=== PATIENT | male | born 1985 | race Caucasian/White ===

== ENCOUNTER 2016-08-14 13:50 | Emergency (ER) | payer SELFPAY ==
[2016-08-14 14:19] VITALS: O2SAT 96
[2016-08-14 14:22] LABS: % IMMATURE GRANULYOCYTES 0.5 % (0.0-1.1); ABSOLUTE IMMATURE GRANULOCYTES 0.04 10^3/uL (0.00-0.10); ADD DIFF? NO; ADD MORPH? NO; ADD SCAN? NO; ATYPICAL LYMPHOCYTE FLAG 10 (0-99); FRAGMENT RBC FLAG 0 (0-99); HEMATOCRIT 41.1 % (40.0-51.0); HEMOGLOBIN 14.2 g/dL (13.7-17.5); LEFT SHIFT FLG 0 (0-99); LIPEMIA HEMOLYSIS FLAG 90 (0-99); MEAN CELL HEMOGLOBIN 32.3 pg (27.9-34.1); MEAN CELL HEMOGLOBIN CONCENTR. 34.5 g/dL (32.4-36.7); MEAN CELL VOLUME 93.4 fL (81.5-99.8); MEAN PLATELET VOLUME 9.4 fL (8.7-11.7); PLATELET CLUMPS FLAG 10 (0-99); PLATELET COUNT 312 10^3/uL (150-400); RED CELL DISTRIBUTION WIDTH 13.2 % (11.5-15.2)
[2016-08-14 14:40] LABS: ANION GAP 12 mEq/L (8-16); CALCIUM 9.7 mg/dL (8.5-10.4); CARBON DIOXIDE 23 mEq/l (22-31); CHLORIDE 106 mEq/L (97-110); CREATININE 0.8 mg/dL (0.7-1.3); ETHANOL SERUM < 10 mg/dL (0-10); GLOMERULAR FILTRATION RATE > 60; GLUCOSE 147 mg/dL (70-100); POTASSIUM 4.3 mEq/L (3.5-5.2); SALICYLATE < 1.0 mg/dL (2.0-20.0); SODIUM 141 mEq/L (134-144)
--- NOTE | 2016-08-14 14:41 | EDPHY ---
H & P Stated Complaint: Penis pain/ SI - Personal History Current Tetanus/Diphtheria Vaccine: Yes Current Tetanus Diphtheria and Acellular Pertussis (TDAP): Yes - Medical/Surgical History Hx Asthma: No Hx Chronic Respiratory Disease: No Hx Diabetes: No Hx Cardiac Disease: No Hx Renal Disease: No Hx Cirrhosis: No Hx Alcoholism: No Hx HIV/AIDS: No Hx Splenectomy or Spleen Trauma: No Other PMH: bipolar, schizoaffective, deppression, PTSD - Social History Smoking Status: Current every day smoker Time Seen by Provider: 08/14/16 13:55 HPI/ROS: CHIEF COMPLAINT: Suicidal ideation and penile pain HISTORY OF PRESENT ILLNESS: 31-year-old male history of bipolar disorder, PTSD , schizoaffective disorder, prior history of priapism, history of chronic penis pain arrives via ambulance for primary complaint of suicidal ideation with plan to jump off a bridge. Placed on M1 by police. He also mentioned to EMS that he had been experiencing penile ecchymotic discoloration and pain after self-described "rough sex" the day preceding his symptoms. Urinary habits have been normal. He is also complaining of testicular pain which started this morning. REVIEW OF SYSTEMS: A ten point review of systems was performed and is negative with the exception of the items mentioned in the HPI PAST MEDICAL & SURGICAL HISTORY: Bipolar disorder. PTSD. Schizoaffective disorder. Priapism. SOCIAL HISTORY: positive marijuana use PHYSICAL EXAM (Prior to examination, patient consented to physical exam, hands were washed and my usual and customary physical exam procedures followed) 1) GENERAL: Well-developed, well-nourished, alert and oriented. Appears to be in no acute distress. 2) HEAD: Normocephalic, atraumatic 3) HEENT: Pupils equal, round, reactive to light bilaterally. Sclera anicteric. 4) NECK: Full range of motion, no meningeal signs. 5) LUNGS: Clear auscultation bilaterally, no wheezes 6) HEART: Regular rate and rhythm, no murmur, no heave, no gallop. 7) ABDOMEN: No guarding, no rebound, no focal tenderness 8) MUSCULOSKELETAL: Moving all extremities, no focal areas of tenderness, no obvious trauma. No peripheral edema or discoloration. 9) BACK: No CVA tenderness, no midline vertebral tenderness, no fluctuance, no step-off, no obvious trauma, no visual or palpable abnormality. 10) SKIN: No rash, no petechiae. 11) Psychiatric: Patient is oriented X 3, there is no agitation. 12) : Uncircumcised, foreskin easily retracts. No urethral discharge. The shaft of the penis is ecchymotic primarily on volar aspect. The penis is nontender. Bilateral testicles are tender with cremasteric reflex present equal bilaterally no high-riding, no asymmetry, no edema. Perineal examination unremarkable with no hematoma no tenderness. DIFFERENTIAL DIAGNOSIS: In no particular include but limited to suicidal ideation, homicidal ideation, testicular torsion, fractured penis (Shanda Hanna) Constitutional: Initial Vital Signs Temperature (C) 36.9 C 08/14/16 14:08 Heart Rate 105 H 08/14/16 14:08 Respiratory Rate 14 08/14/16 14:08 Blood Pressure 116/84 H 08/14/16 14:08 O2 Sat (%) 96 08/14/16 14:08 O2 Delivery Mode Room Air Allergies/Adverse Reactions: chlorpromazine [From Thorazine] Allergy (Verified 08/14/16 14:07) iodine Allergy (Verified 08/14/16 14:07) lamotrigine [From Lamictal] Allergy (Verified 08/14/16 14:07) shellfish derived Allergy (Verified 08/14/16 14:07) Medical Decision Making - Diagnostics Imaging: Imaging Impressions Testicular Ultrasound 08/14/16 13:59 Impression: Asymmetric decrease in the size of the left testicle with a linear hypoechoic band, most likely related to sequela of old trauma. Recommend follow- up ultrasound in 3-[address] Conner Albright reviewed the study and agrees with the findings and recommendations. Findings discussed with Anthony Hanna PA-C on 08/14/2016 at 1450 hours. Images reviewed by myself (Shanda Hanna) ED Course/Re-evaluation: 4:20 p.m.: Re-evaluation. He is talking on the phone. Calm, cooperative. Genitalia re-examined by myself and also exam by Dr. Sarina Leo. Doubt testicular fracture, testicular torsion, penile fracture, priapism. 5:50 p.m. Patient evaluated by mental health underwriter. Informed patient that he has a bus ticket to go back to [place] at 7:30 p.m. this evening. Mental health underwriter does not think the patient meets criteria for mental health hold and the hold has been vacated by psychiatrist Dr. Madeleine Chandler . ( Shanda Hanna) Other Provider: I have evaluated and participated in the management of this patient. My co- signature indicates that I have reviewed this chart and that I agree with the findings and the plan of care as documented. I specifically evaluated his genitalia due to the penile edema. My personal history and physical findings include: The patient is alert and cooperative. Genitalia exam reveals a slightly edematous improved penile shaft. He is not circumcised. Foreskin can be easily retracted. No penile lesions. Testes are without swelling or tenderness. Abdomen is soft and nontender. (Sarina Leo) - Data Points Laboratory Results: Laboratory Results 08/14/16 14:16 08/14/16 14:16 08/14/16 08/14/16 08/14/16 14:34 14:34 14:16 WBC RBC Hgb Hct MCV MCH MCHC RDW Plt Count MPV Neut % (Auto) Lymph % (Auto) [place] % (Auto) Eos % (Auto) Baso % (Auto) Nucleat RBC Rel Count Absolute Neuts (auto) Absolute Lymphs (auto) Absolute Monos (auto) Absolute Eos (auto) Absolute Basos (auto) Absolute Nucleated RBC Immature Gran % Immature Gran # Sodium 141 mEq/L mEq/L (134-144) Potassium 4.3 mEq/L mEq/L (3.5-5.2) Chloride 106 mEq/L mEq/L (97-110) Carbon Dioxide 23 mEq/l mEq/l (22-31) Anion Gap 12 mEq/L mEq/L (8-16) BUN 16 mg/dL mg/dL (7-23) Creatinine 0.8 mg/dL mg/dL (0.7-1.3) Estimated GFR > 60 Glucose 147 mg/dL H mg/dL (70-100) Calcium 9.7 mg/dL mg/dL (8.5-10.4) Urine Color YELLOW Urine Appearance CLEAR Urine pH 6.0 (5.0-7.5) Ur Specific [place] 1.019 (1.002-1.030) Urine Protein NEGATIVE (NEGATIVE) Urine Ketones NEGATIVE (NEGATIVE) Urine Blood NEGATIVE (NEGATIVE) Urine Nitrate NEGATIVE (NEGATIVE) Urine Bilirubin NEGATIVE (NEGATIVE) Urine Urobilinogen NEGATIVE EU EU (0.2-1.0) Ur Leukocyte Esterase NEGATIVE (NEGATIVE) Urine RBC 1-3 /hpf /hpf (0-3) Urine WBC 1-3 /hpf /hpf (0-3) Ur Epithelial Cells NONE SEEN /lpf /lpf (NONE-1+) Urine Mucus TRACE /lpf /lpf (NONE-1+) Urine Glucose NEGATIVE (NEGATIVE) Salicylates < 1.0 mg/dL L mg/dL (2.0-20.0) Urine Opiates Screen NON-NEGATIVE H (NEGATIVE) Acetaminophen < 10 mcg/mL L mcg/mL (10.0-30.0) Urine Barbiturates NEGATIVE (NEGATIVE) Ur Phencyclidine Scrn NEGATIVE (NEGATIVE) Ur Amphetamine Screen NEGATIVE (NEGATIVE) U Benzodiazepines Scrn NEGATIVE (NEGATIVE) Urine Cocaine Screen NEGATIVE (NEGATIVE) U Marijuana (THC) Screen NON-NEGATIVE H (NEGATIVE) Ethyl Alcohol < 10 mg/dL mg/dL (0-10) C.trachomatis RNA (TMA) Pending N.gonorrhoeae RNA (TMA) Pending 08/14/16 14:16 WBC 8.53 10^3/uL 10^3/uL (3.80-9.50) RBC 4.40 10^6/uL 10^6/uL (4.40-6.38) Hgb 14.2 g/dL g/dL (13.7-17.5) Hct 41.1 % % (40.0-51.0) MCV 93.4 fL fL (81.5-99.8) MCH 32.3 pg pg (27.9-34.1) MCHC 34.5 g/dL g/dL (32.4-36.7) RDW 13.2 % % (11.5-15.2) Plt Count 312 10^3/uL 10^3/uL (150-400) MPV 9.4 fL fL (8.7-11.7) Neut % (Auto) 71.5 % % (39.3-74.2) Lymph % (Auto) 18.2 % % (15.0-45.0) [place] % (Auto) 7.2 % % (4.5-13.0) Eos % (Auto) 2.5 % % (0.6-7.6) Baso % (Auto) 0.1 % L % (0.3-1.7) Nucleat RBC Rel Count 0.0 % % (0.0-0.2) Absolute Neuts (auto) 6.11 10^3/uL 10^3/uL (1.70-6.50) Absolute Lymphs (auto) 1.55 10^3/uL 10^3/uL (1.00-3.00) Absolute Monos (auto) 0.61 10^3/uL 10^3/uL (0.30-0.80) Absolute Eos (auto) 0.21 10^3/uL 10^3/uL (0.03-0.40) Absolute Basos (auto) 0.01 10^3/uL L 10^3/uL (0.02-0.10) Absolute Nucleated RBC 0.00 10^3/uL 10^3/uL (0-0.01) Immature Gran % 0.5 % % (0.0-1.1) Immature Gran # 0.04 10^3/uL 10^3/uL (0.00-0.10) Sodium Potassium Chloride Carbon Dioxide Anion Gap BUN Creatinine Estimated GFR Glucose Calcium Urine Color Urine Appearance Urine pH Ur Specific [place] Urine Protein Urine Ketones Urine Blood Urine Nitrate Urine Bilirubin Urine Urobilinogen Ur Leukocyte Esterase Urine RBC Urine WBC Ur Epithelial Cells Urine Mucus Urine Glucose Salicylates Urine Opiates Screen Acetaminophen Urine Barbiturates Ur Phencyclidine Scrn Ur Amphetamine Screen U Benzodiazepines Scrn Urine Cocaine Screen U Marijuana (THC) Screen Ethyl Alcohol C.trachomatis RNA (TMA) N.gonorrhoeae RNA (TMA) Departure - Departure Disposition: Home, Routine, Self-Care Clinical Impression: Bruising of penis Qualifiers: Encounter type: initial encounter Qualified Code(s): S30.21XA - Contusion of penis, initial encounter Bipolar disorder Qualifiers: Active/Remission status: currently active Current bipolar episode type: depressed Current episode severity: unspecified Qualified Code(s): F31.30 - Bipolar disorder, current episode depressed, mild or moderate severity, unspecified Instructions: Bipolar Disorder (ED) Additional Instructions: Call 911 if you develop thoughts of hurting herself, if you have new penis pain , swelling, testicle pain. Please be cautious with sexual activity for the next 1 week Referrals: Kishan Stewart MD [Medical Doctor] - 2-3 days, call for appt. (Dr. Kishan Stewart is a urologist)
[2016-08-14 14:48] LABS: COLOR YELLOW
[2016-08-14 14:49] LABS: LEUKOCYTE ESTERASE,URINE NEGATIVE (NEGATIVE); NITRITE,URINE NEGATIVE (NEGATIVE)
[2016-08-14 15:03] LABS: MUCUS TRACE /lpf (NONE-1+)
[2016-08-14 17:59] VITALS: BP 145/87; PULSE 94; RESP 16; TEMP 97.9
[2016-08-17 12:42] LABS: CHLAMYDIA AMPLIFICATION GENPRB NEGATIVE (NEGATIVE)
== END 2016-08-14 17:59 | disposition home or self-care (01) ==
DX: F31.30 Bipolar disorder, current episode depressed, mild or moderate severity, unspecified (principal); S30.21XA Contusion of penis, initial encounter; F17.200 Nicotine dependence, unspecified, uncomplicated; X58.XXXA Exposure to other specified factors, initial encounter
CPT/HCPCS: 80305; G0480